=== PATIENT | male | born 1975 | race Caucasian/White ===

== ENCOUNTER 2023-11-12 17:20 | Emergency (ER) | payer OTHER, SELFPAY ==
[2023-11-12 17:22] VITALS: BP 167/101
[2023-11-12 17:39] LABS: % Basophils 0.7 % (0-2); % Eosinophils 5.6 % (0-6); % Immature Granulocytes 0.6 % (0-0.5); % Lymphocytes 37.3 % (20.5-51.1); % Monocytes 6.5 % (1.7-9.3); % Neutrophils 49.3 % (42.2-75.2); Absolute Basophils 0.1 10^3/uL (0-0.2); Absolute Eosinophils 0.5 10^3/uL (0-0.7); Absolute Immature Granulocytes 0.1 10^3/uL (0-0.05); Absolute Lymphocytes 3.2 10^3/uL (1.2-3.4); Absolute Monocytes 0.6 10^3/uL (0.1-0.6); Absolute Neutrophils 4.3 10^3/uL (1.4-6.5); Hemoglobin 15.4 g/dL (13.0-18.0); Mean Corpuscular Hgb 28.8 pg (27.0-31.0); Mean Corpuscular Volume 82.4 fL (80.0-94.0); Mean Platelet Volume 9.6 fL (7.4-10.4); Nucleated Red Blood Cells % 0 % (-); Platelet Count 192 10^3/uL (130-400); Red Blood Cell Count 5.34 10^6/uL (4.70-6.10); Red Cell Dist. Width 12.6 % (11.5-14.5); White Blood Cell Count 8.7 10^3/uL (4.8-10.8)
[2023-11-12 17:53] LABS: ALT (SGPT) 36 U/L (0-50); AST (SGOT) 27 U/L (17-59); Albumin 4.6 g/dl (3.5-5.0); Alkaline Phosphatase 85 U/L (38-126); Blood Urea Nitrogen 13 mg/dl (9-20); Calcium 9.3 mg/dl (8.4-10.2); Carbon Dioxide 30 mmol/L (22-30); Chloride 102 mmol/L (98-107); Glucose 97 mg/dl (70-99); Lipase 143 U/L (23-300); Sodium 136 mmol/L (135-145); Total Bilirubin 0.7 mg/dl (0.2-1.3); Total Protein 7.6 g/dl (6.3-8.2); eGFR > 60.00
[2023-11-12 19:00] VITALS: BMI 45.8
[2023-11-12] MEDS: NSS 500 IV (19:05)
--- NOTE | 2023-11-12 19:06 | ED.GENMED ---
History of Present Illness
General
Chief Complaint: Abdominal Pain
Source: patient
Exam Limitations: none
Time Seen by Provider: 11/12/23 18:40
Travel History
Have you had any contact with someone who has COVID-19?: No
Do you have any symptoms of coronavirus? Fever > 100 degrees, chills, cough, shortness of breath, sore throat, loss of taste or smell, muscle aches, or headache?: No
History of Present Illness
History of Present Illness:
This is a 48 year old male that comes in with c/o abd pain. States that this started about 3 days ago. State that it seemed to be the same type of pain when he had a perforation for Diverticulitis. States that his stomach started to feel bloated
and he just didn't feel good. State that he was nauseated yesterday and today he had chills. States that he has right lower abd pain. States that he also has a headache. Denies any fever, chest pain, SOB, vomiting, diarrhea, dizziness, urinary
burning.
Past History
Past History
ED Past Medical History: GERD and Other (Diverticulitis, )
ED Past Surgical History: Orthopedic (Left knee surgery) and Tonsilectomy
Social History
Tobacco: Non-smoker
Alcohol: None
Personal:
Living: with family
Employment: Employed
Family History
Family History: Other
Review of Systems
Review of Systems
All Other Systems: ROS reviewed and negative except as documented in HPI and ROS
Constitutional: Reports chills; Denies fever
EENT: Reports no symptoms
Respiratory: Reports no symptoms; Denies cough or trouble breathing
Cardiac: Reports no symptoms; Denies chest pain
ABD/GI: Reports abdominal pain and nausea; Denies vomiting or diarrhea
: Reports no symptoms; Denies dysuria, frequency or urgency
Musculoskeletal: Reports no symptoms
Skin: Reports no symptoms
Neurological: Reports headache; Denies dizzy
Psychiatric: Reports no symptoms
Phy Exam
General Physical Exam
General Presentation: well appearing and no apparent distress
General age: appears stated age
General Skin: warm and dry
General Habitus: normal
General Mental: alert
General Hydration: appears well hydrated
ENT Exam
ENT Exam: TM's normal, pharynx normal and neck supple
Eye Exam
Eye Exam: EOMI
Cardiovascular Exam
Cardiovascular Exam: regular rate/rhythm, no edema, no murmur and normal peripheral pulses
Pulmonary Exam
Pulmonary Exam: lungs clear, no respiratory distress, no rales, chest non tender, no crackles, no rhonchi, no wheezing and no cough
Gastrointestinal Exam
Gastrointestinal Exam: normal bowel sounds, soft, no organomegaly, no pulsatile mass, non distended and tender (Right lower abd pain with rebound tenderness)
Musculoskeletal Exam
Musculoskeletal Exam: full ROM and no edema
Skin Exam
Skin Exam: normal color, warm/dry, no rash and no petechia
Psychiatric Exam
Psychiatric Exam: normal mood/affect
Course
Orders/Labs/Results
Orders:
Orders
11/12/23 17:29
CMP [Comprehensive Metabolic Panel] Urgent
Complete Blood Count/With Diff Urgent
Lipase Urgent
11/12/23 18:50
CT Abd/pelvis W Iv Cont Urgent
Comment:
Reason For Exam: Right lower abd pain
11/12/23 18:51
0.9% Sodium Chloride 500 ml [Nss] 500 ml IV BOLUS
11/12/23 20:08
Urinalysis Reflex To Culture Urgent
Date Specimen was Collected: 11/12/23
Time Specimen was Collected: 19:48
Abnormal Lab Results
11/12/23
17:29
Abs Immat Gran (auto) 0.1 H 10^3/uL
(0-0.05)
Immature Gran % 0.6 H %
(0-0.5)
11/12/23 17:29
11/12/23 17:29
Labs unremarkable.
Vital Signs
Initial and Last Documented VS:
Initial Vital Signs
Temp Pulse Resp BP Pulse Ox
98.4 F 85 18 167/101 99
11/12/23 17:22 11/12/23 17:22 11/12/23 17:22 11/12/23 17:22 11/12/23 17:22
Last Documented Vital Signs
Temp Pulse Resp BP Pulse Ox
98.4 F 85 18 167/101 99
11/12/23 17:22 11/12/23 17:22 11/12/23 17:22 11/12/23 17:22 11/12/23 17:22
MDM/Problems Addressed
Differential Diagnosis Includes:
Appendicitis, Diverticulitis,
MDM/Problems Addressed:
This is a 48 year old male that comes in with c/o right sided abd pain. States that he started 3 days ago with this right sided abd pain. States that today he has chills and nausea.
Will get labs and CT scan. Patient refused pain medication at this time.
Back into see patient. Explained that he dose have Diverticulitis. Will start patient on Levaquin and Flagyl. Patient to return with fever, increased or changing pain. Patient to follow up with the PCP or Dr. Reynolds.
Chronic conditions affecting care:
History of Diverticulitis
Acute Exacerbation and/or Progression of Chronic Illness:
Diverticulitis
*Radiology
Radiology exam reviewed: radiology read reviewed (CT-Acute diverticulitis in the sigmoid colon. Moderate diverticulosis throughout the sigmoid colon. Severe diffuse hepatic steatosis. Mild hepatosplenomegaly. Moderate discogenic degenerative disease
in the lumbar spine)
*Pulse Oximetry
Patient hypoxic: no
*EKG
Interpreted by ED Provider?: NA
Rate: EKG- N/A
*Family And Divorce Legal Assistant Interpretation
Rate: Family And Divorce Legal Assistant- N/A
*Critical Care Note
Total Time (30-74mins, 75-104mins- exclusive of procedures): Not Applicable
ED Attending Note
-
Portions of this chart may have been created with voice recognition software.� Occasional wrong word or��sound alike� substitutions may have occurred due to the inherent limitations of voice recognition software.
Discharge Plan
Departure
Patient Disposition: Home (Routine Discharge)
Date of Disposition: 11/12/23
Time of Disposition: 20:59
Patient with high blood pressure during this ER visit?: Yes
Condition: Good
Covid-19: Not Applicable
Discharge Problem:
Diverticulitis
Instructions: Diverticulitis (DC), BLOOD PRESSURE
Prescriptions:
New
levofloxacin 500 mg tablet
500 mg PO DAILY Qty: 9 0RF
metronidazole 500 mg tablet
500 mg PO TID Qty: 29 0RF
ondansetron 4 mg tablet,disintegrating
4 mg PO Q8H PRN (Reason: nausea and vomiting) Qty: 5 0RF
No Action
Ag1 Greens
1 dose PO DAILY
aspirin 81 mg Capsule
81 mg
Referrals:
Jose Rainey DO [Family Provider] - Call in 1-3 days for appt
Activity Restrictions/Additional Instructions:
As discussed, our blood work is normal. Your CT shows that you have diverticulitis. You have been given your first dose of antibiotic here and prescriptions have been sent to your Pharmacy. Please follow up with the family doctor of your GI
specialist for further evaluation. IF YOU HAVE INCREASED OR CHANGING ABD PAIN, FEVER, OR YOU HAVE ANY OTHER CONCERNS PLEASE RETURN TO THE EMERGENCY ROOM.
Interventions
Interventions:
*Risk Screen - Suicide Last Done: 11/12/23 19:07
*General Assessment Last Done: 11/12/23 19:07
*Neglect/Abuse Screening Last Done: 11/12/23 19:07
*ED COVID-19 Vaccine History Last Done: 11/12/23 19:07
RI-Wmyvxt-Grjhsrkjnd Assessment Last Done: 11/12/23 19:00
Discharge Date and Time
Print Language: MACEDONIAN
[2023-11-12 20:13] LABS: Urine Albumin Negative (Neg - Trace); Urine Bilirubin Negative (Negative); Urine Character Clear (Clear); Urine Color Yellow; Urine Glucose Negative (Negative); Urine Ketone Negative (Negative); Urine Leukocyte Negative (Negative); Urine Nitrite Negative (Negative); Urine Occult Blood Negative (Negative); Urine Specific Gravity 1.015 (<1.030); Urine Urobilinogen Negative (Neg - 1+)
[2023-11-12] MEDS: ZOFRAN 4 MG IV (21:14)
[2023-11-12] MEDS: FLAGYL 500 MG PO (21:14)
[2023-11-12] MEDS: LEVAQUIN 500 MG PO (21:14)
[2023-11-12 21:15] VITALS: BP 151/107
== END 2023-11-12 21:42 | disposition home or self-care (01) ==
LOC: EMR 17:20
PROVIDERS: Clinical Nurse Specialist Family Health; EMERGENCY PHYSICIAN Emergency Medicine; FAMILY PHYSICIAN Family Medicine
DX: K57.32 Diverticulitis of large intestine without perforation or abscess without bleeding (principal); K21.9 Gastro-esophageal reflux disease without esophagitis
CPT/HCPCS: 99284; 96374; 96361; 74177; 80053; 81003; 83690; 85025; Q9967

== ENCOUNTER 2023-11-20 16:26 | Emergency (ER) | payer OTHER, SELFPAY ==
[2023-11-20 16:28] VITALS: BP 154/105
[2023-11-20 18:01] VITALS: BMI 45.1
--- NOTE | 2023-11-20 18:16 | ED.GENMED ---
History of Present Illness
General
Chief Complaint: Abdominal Pain
Source: patient
Exam Limitations: none
Time Seen by Provider: 11/20/23 17:47
Nursing documentation reviewed up to this point in time: agreed with
Travel History
Have you had any contact with someone who has COVID-19?: No
Do you have any symptoms of coronavirus? Fever > 100 degrees, chills, cough, shortness of breath, sore throat, loss of taste or smell, muscle aches, or headache?: No
History of Present Illness
History of Present Illness:
Patient is a 48-year-old male who presents to the ER for evaluation. Patient was treated for diverticulitis which was diagnosed here by CAT scan 8 days ago. Patient has been taking Levaquin and Flagyl. Patient reports now he feels more pain in
his upper abdominal region and feels very bloated. He Is not made worse or better with eating. He does report he has had reflux in the past but this feels worse. He denies any fever or chills
Past History
Past History
ED Past Medical History: GERD and Other (Diverticulitis, )
ED Past Surgical History: Orthopedic (Left knee surgery) and Tonsilectomy
Social History
Tobacco: Non-smoker
Alcohol: None
Personal:
Living: with family
Employment: Employed
Family History
Family History: Other
Review of Systems
Review of Systems
Allergies reviewed?: Yes
All Other Systems: ROS reviewed and negative except as documented in HPI and ROS
Constitutional: Reports no symptoms; Denies fever, fatigue or chills
Respiratory: Reports no symptoms
Cardiac: Reports no symptoms
ABD/GI: Reports abdominal pain; Denies nausea or vomiting
: Reports no symptoms
Musculoskeletal: Reports no symptoms
Skin: Reports no symptoms
Neurological: Reports no symptoms
Psychiatric: Reports no symptoms
Phy Exam
General Physical Exam
General Presentation: no apparent distress
General age: appears stated age
General Skin: warm and dry
General Habitus: normal
General Mental: alert
General Hydration: appears well hydrated
Cardiovascular Exam
Cardiovascular Exam: regular rate/rhythm, no murmur and normal peripheral pulses
Pulmonary Exam
Pulmonary Exam: lungs clear and no respiratory distress
Gastrointestinal Exam
Gastrointestinal Exam: soft and other (Tender throughout the upper abdominal region)
Neurological Exam
Neurological Exam: alert and oriented x3
Musculoskeletal Exam
Musculoskeletal Exam: full ROM
Course
Orders/Labs/Results
Orders:
Orders
11/20/23 16:29
Electrocardiogram (*1) Urgent
Reason for Study: Abdominal Pain
EKG- Treatment ONCE
11/20/23 18:12
CMP [Comprehensive Metabolic Panel] Urgent
Complete Blood Count/With Diff Urgent
11/20/23 18:18
CT Abd/Pel (IV only)-DH only Urgent
Comment:
Reason For Exam: Worsening abdominal pain with known diverticulitis
11/20/23 20:53
Famotidine [Pepcid] 20 mg IV NOW STA
Mag Hydrox/Al Hydrox/Simeth [Maalox] 30 ml Phenobarb/Hyoscy/Atropine/Scop [] 10 ml PO NOW
11/20/23 20:58
Mag Hydrox/Al Hydrox/Simeth [Maalox] 30 ml .ROUTE .STK-MED ONE
Phenobarb/Hyoscy/Atropine/Scop [] 10 ml .ROUTE .STK-MED ONE
Abnormal Lab Results
11/20/23
18:12
Lymphocytes % 18.5 L %
(20.5-51.1)
Carbon Dioxide 32 H mmol/L
(22-30)
Glucose 104 H mg/dl
(70-99)
11/20/23 18:12
11/20/23 18:12
Vital Signs
Initial and Last Documented VS:
Initial Vital Signs
Temp Pulse Resp BP Pulse Ox
97.8 F 92 18 154/105 99
11/20/23 16:28 11/20/23 16:28 11/20/23 16:28 11/20/23 16:28 11/20/23 16:28
Last Documented Vital Signs
Temp Pulse Resp BP Pulse Ox
97.8 F 92 18 150/95 99
11/20/23 16:28 11/20/23 16:28 11/20/23 16:28 11/20/23 21:00 11/20/23 16:28
MDM/Problems Addressed
MDM/Problems Addressed:
Patient is a 48-year-old male that was treated for diverticulitis 8 days ago here in the ER but now complains of burning pain in the upper abdominal area. He has history reflux in the past and took a strong oucd-vfr-bgbpuhy antiacid previously but
stopped taking it and forgets the name. He presents awake alert no acute distress he describes this as a burning type pain in the upper abdominal area mild tender. He denies any fever or chills. He is on antibiotics. CAT scan was done which does
show improving sigmoid diverticulitis with only minimal residual inflammatory fat stranding. There is normal gallbladder bile ducts pancreas and bilateral adrenal glands along with normal kidneys and no hydro. Likely gastritis. Patient was given
GI cocktail here along with Pepcid feeling much better. Will d/c w/ Protonix. Pt denies black dark stool.
Patient's white count is normal normal chemistries.
Patient has appointment with Dr. Reynolds for follow-up December 11 will also refer to GI .
Chronic conditions affecting care:
diverticulitis
*Radiology
Radiology exam reviewed: radiology read reviewed
*Pulse Oximetry
Patient hypoxic: no
*Critical Care Note
Total Time (30-74mins, 75-104mins- exclusive of procedures): Not Applicable
Data Reviewed
Review of Other/Old Records Reveals: Radiology Studies and Other (previous ED visit )
ED Attending Note
-
Portions of this chart may have been created with voice recognition software.� Occasional wrong word or��sound alike� substitutions may have occurred due to the inherent limitations of voice recognition software.
Discharge Plan
Departure
Patient Disposition: Home (Routine Discharge)
Date of Disposition: 11/20/23
Time of Disposition: 22:35
Patient with high blood pressure during this ER visit?: Yes
Condition: Fair
Covid-19: Not Applicable
Discharge Problem:
Abdominal pain, Gastritis
Instructions: Acid Reflux and GERD in Adults (DC), Gastritis (DC), Abdominal Pain
Prescriptions:
New
pantoprazole [Protonix] 40 mg tablet,delayed release (DR/EC)
40 mg PO DAILY Qty: 14 0RF
No Action
Ag1 Greens
1 dose PO DAILY
aspirin 81 mg Capsule
81 mg
levofloxacin 500 mg tablet
500 mg PO DAILY Qty: 9 0RF
metronidazole 500 mg tablet
500 mg PO TID Qty: 29 0RF
ondansetron 4 mg tablet,disintegrating
4 mg PO Q8H PRN (Reason: nausea and vomiting) Qty: 5 0RF
Referrals:
Jose Rainey DO [Family Provider] -
Ludy Estrada MD [Active] -
Activity Restrictions/Additional Instructions:
Continue antibiotics until you are completed for your diverticulitis.
A prescription for Protonix was sent to your pharmacy take as directed. Avoid spicy acidic foods avoid caffeine and chocolates. Follow-up with your family doctor in the next several days for reevaluation. Also follow-up with GI. Call
Follow-up with Dr. Reynolds as scheduled and return if any worsening of symptoms
Interventions
Interventions:
*Risk Screen - Suicide Last Done: 11/20/23 16:28
*General Assessment Last Done: 11/20/23 16:28
*Neglect/Abuse Screening Last Done: 11/20/23 16:28
ED- Fall Risk Assessment Last Done: 11/20/23 18:04
*ED COVID-19 Vaccine History Last Done: 11/20/23 16:28
MK-Hinofu-Qpsqvfovzi Assessment Last Done: 11/20/23 18:01
Discharge Date and Time
Print Language: SYRIAC
[2023-11-20 18:26] LABS: % Basophils 0.4 % (0-2); % Eosinophils 4.7 % (0-6); % Immature Granulocytes 0.4 % (0-0.5); % Lymphocytes 18.5 % (20.5-51.1); % Monocytes 4.5 % (1.7-9.3); % Neutrophils 71.5 % (42.2-75.2); Absolute Eosinophils 0.4 10^3/uL (0-0.7); Absolute Lymphocytes 1.5 10^3/uL (1.2-3.4); Absolute Monocytes 0.4 10^3/uL (0.1-0.6); Absolute Neutrophils 5.6 10^3/uL (1.4-6.5); Hematocrit 46.8 % (39.0-52.0); Hemoglobin 16.2 g/dL (13.0-18.0); Mean Corp Hgb Conc. 34.6 g/dL (33.0-37.0); Mean Corpuscular Hgb 28.4 pg (27.0-31.0); Mean Platelet Volume 9.3 fL (7.4-10.4); Nucleated Red Blood Cells % 0 % (-); Platelet Count 177 10^3/uL (130-400); Red Blood Cell Count 5.71 10^6/uL (4.70-6.10); Red Cell Dist. Width 12.8 % (11.5-14.5); White Blood Cell Count 7.8 10^3/uL (4.8-10.8)
[2023-11-20 18:38] LABS: ALT (SGPT) 38 U/L (0-50); AST (SGOT) 32 U/L (17-59); Albumin 4.5 g/dl (3.5-5.0); Alkaline Phosphatase 61 U/L (38-126); Blood Urea Nitrogen 20 mg/dl (9-20); Calcium 9.5 mg/dl (8.4-10.2); Carbon Dioxide 32 mmol/L (22-30); Chloride 99 mmol/L (98-107); Estimated Creatinine Clearance > 125 ml/min; Glucose 104 mg/dl (70-99); Potassium 4.8 mmol/L (3.5-5.1); Sodium 136 mmol/L (135-145); Total Protein 7.4 g/dl (6.3-8.2); eGFR > 60.00
[2023-11-20 19:16] VITALS: BP 141/107
[2023-11-20 21:00] VITALS: BP 150/95
[2023-11-20] MEDS: PEPCID 20 MG IV (21:00)
[2023-11-20] MEDS: MAALOX 40 PO (21:01)
[2023-11-20 22:00] VITALS: BP 150/106
[2023-11-20] MEDS: PROTONIX 40 MG PO (22:41)
== END 2023-11-20 22:57 | disposition home or self-care (01) ==
LOC: EMR 16:26
PROVIDERS: Nurse Practitioner; EMERGENCY PHYSICIAN Emergency Medicine; FAMILY PHYSICIAN Family Medicine
DX: R10.9 Unspecified abdominal pain (principal); K29.70 Gastritis, unspecified, without bleeding; K21.9 Gastro-esophageal reflux disease without esophagitis
CPT/HCPCS: 99284; 96374; 74177; 80053; 85025; 93005; Q9967

== ENCOUNTER → 2024-01-09 06:35 | Day surgery (SDC) | payer OTHER, SELFPAY | LOC: GI 06:35 | PROVIDERS: ATTENDING PHYSICIAN Internal Medicine | DX: R12 Heartburn (principal); K31.89 Other diseases of stomach and duodenum; K31.7 Polyp of stomach and duodenum | CPT/HCPCS: 43239; 88305; 88342 ==

== ENCOUNTER 2024-04-14 19:57 | Emergency (ER) | payer OTHER, SELFPAY ==
[2024-04-14 19:58] VITALS: BP 160/104
[2024-04-14 20:15] LABS: % Basophils 0.6 % (0-2); % Eosinophils 3.7 % (0-6); % Immature Granulocytes 0.3 % (0-0.5); % Lymphocytes 39.3 % (20.5-51.1); % Monocytes 5.9 % (1.7-9.3); % Neutrophils 50.2 % (42.2-75.2); Absolute Eosinophils 0.3 10^3/uL (0-0.7); Absolute Lymphocytes 2.9 10^3/uL (1.2-3.4); Absolute Monocytes 0.4 10^3/uL (0.1-0.6); Absolute Neutrophils 3.7 10^3/uL (1.4-6.5); Hematocrit 45.4 % (39.0-52.0); Hemoglobin 15.6 g/dL (13.0-18.0); Mean Corp Hgb Conc. 34.4 g/dL (33.0-37.0); Mean Corpuscular Hgb 28.9 pg (27.0-31.0); Mean Corpuscular Volume 84.2 fL (80.0-94.0); Mean Platelet Volume 9.8 fL (7.4-10.4); Nucleated Red Blood Cells % 0 % (-); Platelet Count 158 10^3/uL (130-400); Red Blood Cell Count 5.39 10^6/uL (4.70-6.10); Red Cell Dist. Width 12.4 % (11.5-14.5); White Blood Cell Count 7.3 10^3/uL (4.8-10.8)
[2024-04-14 20:28] LABS: ALT (SGPT) 29 U/L (0-50); AST (SGOT) 27 U/L (17-59); Albumin 4.6 g/dl (3.5-5.0); Alkaline Phosphatase 83 U/L (38-126); Blood Urea Nitrogen 15 mg/dl (9-20); Calcium 9.4 mg/dl (8.4-10.2); Carbon Dioxide 29 mmol/L (22-30); Chloride 101 mmol/L (98-107); Glucose 117 mg/dl (70-99); Sodium 142 mmol/L (135-145); Total Bilirubin 0.7 mg/dl (0.2-1.3); Total Protein 7.4 g/dl (6.3-8.2); eGFR > 60.00
[2024-04-14 20:57] LABS: Lipase 185 U/L (23-300)
--- NOTE | 2024-04-14 23:12 | ED.GENMED ---
History of Present Illness
General
Chief Complaint: Abdominal Symptoms
Source: patient
Exam Limitations: none
Time Seen by Provider: 04/14/24 20:41
History of Present Illness
History of Present Illness:
This is a 49 year old male that comes in with c/o left sided abd pain. States that for the past couple of days he has had left sided abd discomfort. States that this feels like it did before when he had diverticulitis. States that this has happened
2 times before and he did have a perforation. States that at first he thought it could be his sciatic pain but he realized it was his abd pain. States that he has been constipated. States that he also had nausea. Denies any fever, chills, chest
pain, SOB, vomiting, diarrhea, dizziness, urinary burning.
Past History
Past History
ED Past Medical History: GERD and Other (Diverticulitis, )
ED Past Surgical History: Orthopedic (Left knee surgery) and Tonsilectomy
Social History
Tobacco: Non-smoker
Alcohol: Occasional
Personal:
Living: with family
Employment: Employed
Family History
Family History: Other
Review of Systems
Review of Systems
All Other Systems: ROS reviewed and negative except as documented in HPI and ROS
Constitutional: Reports no symptoms; Denies fever or chills
EENT: Reports no symptoms
Respiratory: Reports no symptoms; Denies cough or trouble breathing
Cardiac: Reports no symptoms; Denies chest pain
ABD/GI: Reports abdominal pain, nausea and constipated; Denies vomiting or diarrhea
: Reports no symptoms; Denies dysuria, frequency or urgency
Musculoskeletal: Reports no symptoms
Skin: Reports no symptoms
Neurological: Reports headache; Denies dizzy
Psychiatric: Reports no symptoms
Phy Exam
General Physical Exam
General Presentation: well appearing and no apparent distress
General age: appears stated age
General Skin: warm and dry
General Habitus: normal
General Mental: alert
General Hydration: appears well hydrated
ENT Exam
ENT Exam: TM's normal, pharynx normal and neck supple
Eye Exam
Eye Exam: EOMI
Cardiovascular Exam
Cardiovascular Exam: regular rate/rhythm, no edema, no murmur and normal peripheral pulses
Pulmonary Exam
Pulmonary Exam: lungs clear, no respiratory distress, no rales, chest non tender, no crackles, no rhonchi, no wheezing and no cough
Gastrointestinal Exam
Gastrointestinal Exam: normal bowel sounds, soft, no organomegaly, no pulsatile mass, non distended and tender (Slight left sided tenderness with palpation)
Musculoskeletal Exam
Musculoskeletal Exam: full ROM and no edema
Skin Exam
Skin Exam: normal color, warm/dry, no rash and no petechia
Psychiatric Exam
Psychiatric Exam: normal mood/affect
Course
Orders/Labs/Results
Orders:
Orders
04/14/24 20:04
Complete Blood Count/With Diff Urgent
Comprehensive Metabolic Panel Urgent
Lactic Acid Urgent
Lipase Urgent
04/14/24 21:12
CT Abd/pelvis W Iv Cont Urgent
Comment: history of diverticulitis with perforation
Reason For Exam: left sided abd pain
Abnormal Lab Results
04/14/24
20:04
Glucose 117 H mg/dl
(70-99)
04/14/24 20:04
04/14/24 20:04
Glucose nonfasting. Lactic acid normal at 1.0, Lipase normal at 185
Vital Signs
Initial and Last Documented VS:
Initial Vital Signs
Temp Pulse Resp BP Pulse Ox
98.9 F 85 20 160/104 99
04/14/24 19:58 04/14/24 19:58 04/14/24 19:58 04/14/24 19:58 04/14/24 19:58
Last Documented Vital Signs
Temp Pulse Resp BP Pulse Ox
98.9 F 85 20 160/104 99
04/14/24 19:58 04/14/24 19:58 04/14/24 19:58 04/14/24 19:58 04/14/24 19:58
MDM/Problems Addressed
Differential Diagnosis Includes:
Diverticulitis, Constipation
MDM/Problems Addressed:
This is a 49 year old male that comes in with c/o abd pain. States that this feels like his Diverticulitis.
Will get labs and CT scan. ]
Back into see patient. Explained that his blood work is normal. CT shows diverticuli but no diverticulitis. Since patient feels that this feels the same. Will give patient prescription for antibiotics and if he starts to feel worse he can start the
antibiotics. Patient to return with fever, or any other concerns. Follow up with the family doctor.
Chronic conditions affecting care:
Diverticulitis,
Acute Exacerbation and/or Progression of Chronic Illness:
NA
*Radiology
Radiology exam reviewed: radiology read reviewed (CT-Diverticuli are present in the colon with no CT evidence of diverticulitis. Hepatomegaly with diffuse fatty infiltration of the liver. Multilevel lumbar degenerative disc disease. )
*Pulse Oximetry
Patient hypoxic: no
*EKG
Interpreted by ED Provider?: NA
Rate: EKG- N/A
*Booking Clerk Interpretation
Rate: Booking Clerk- N/A
*Critical Care Note
Total Time (30-74mins, 75-104mins- exclusive of procedures): Not Applicable
ED Attending Note
-
Portions of this chart may have been created with voice recognition software.� Occasional wrong word or��sound alike� substitutions may have occurred due to the inherent limitations of voice recognition software.
Discharge Plan
Departure
Patient Disposition: Home (Routine Discharge)
Date of Disposition: 04/14/24
Time of Disposition: 23:24
Patient with high blood pressure during this ER visit?: Yes
Condition: Good
Covid-19: Not Applicable
Discharge Problem:
Abdominal pain
Instructions: Abdominal Pain, BLOOD PRESSURE
Prescriptions:
New
levofloxacin 500 mg tablet
500 mg PO DAILY 10 Days Qty: 10 0RF
metronidazole 500 mg tablet
500 mg PO TID Qty: 30 0RF
No Action
Ag1 Greens
1 dose PO DAILY
aspirin 81 mg Capsule
81 mg
levofloxacin 500 mg tablet
500 mg PO DAILY Qty: 9 0RF
metronidazole 500 mg tablet
500 mg PO TID Qty: 29 0RF
ondansetron 4 mg tablet,disintegrating
4 mg PO Q8H PRN (Reason: nausea and vomiting) Qty: 5 0RF
pantoprazole [Protonix] 40 mg tablet,delayed release (DR/EC)
40 mg PO DAILY Qty: 14 0RF
Referrals:
Jose Rainey DO [Family Provider] - Call in 1-3 days for appt
Activity Restrictions/Additional Instructions:
As discussed, your blood work is normal. Your CT shows Diverticuli but no diverticulitis at this time. If your abd pain continues to get worse, you have had 2 antibiotics sent to your Pharmacy that will treat diverticulitis. You may start them as
directed. Please increase your water intake to 8-8oxz glasses daily. Follow up with the family doctor for recheck. IF YOU HAVE FEVER, PAIN THAT IS NOT CONTROLLED OR YOU HAVE ANY OTHER CONCERNS PLEASE RETURN TO THE EMERGENCY ROOM.
Interventions
Interventions:
*General Assessment Last Done: 04/14/24 19:58
Discharge Date and Time
Print Language: URDU
[2024-04-14 23:27] VITALS: BP 147/96
== END 2024-04-14 23:33 | disposition home or self-care (01) ==
LOC: EMR 19:57
PROVIDERS: Emergency Medicine; EMERGENCY PHYSICIAN Emergency Medicine; FAMILY PHYSICIAN Family Medicine
DX: R10.9 Unspecified abdominal pain (principal); K21.9 Gastro-esophageal reflux disease without esophagitis
CPT/HCPCS: 99284; 74177; 80053; 83605; 83690; 85025; Q9967

== ENCOUNTER 2024-05-18 16:40 | Emergency (ER) | payer OTHER, SELFPAY ==
[2024-05-18 16:46] VITALS: BP 163/119
--- NOTE | 2024-05-18 16:47 | ED.GENMED ---
ED Provider Triage
<Jenni Leavitt PA-C - Last Filed: 05/18/24 16:50>
-
Patient seen by provider in Triage?: Seen in Triage
Attestation: A medical screening examination has been initiated by a qualified medical provider. Based on the assessment performed at this time, it has been determined that an emergent medical condition may exist and the patient has been informed
that further medical evaluation and possible additional diagnostic testing may be needed.
HPI: 49yoM here with SOB and CP. Started with dyspnea while sitting in a meeting at 3:30pm. Associated with lightheadedness and chest pressure.
GENERAL: Alert , in no apparent distress
EYE: No visual abnormalities.
NECK: Trachea midline
ENT: No visible abnormalities.
LUNGS: No acute respiratory distress
NEUROLOGICAL: Alert and oriented
SKIN: Skin intact. No visible changes.
MUSCULOSKELETAL: Moving extremities normally
PSYCH: Normal and appropriate interaction.
This is a medical evaluation conducted in person to initiate diagnostic evaluation and provide initial therapeutics. Please see further documentation by the treating clinician.
Cardiac labs, D-dimer, EKG, and CXR ordered.
History of Present Illness
<Jenni Leavitt PA-C - Last Filed: 05/18/24 16:50>
General
Chief Complaint: Chest Pain
Time Seen by Provider: 05/18/24 20:09
<Dg Scott DO - Last Filed: 05/18/24 22:42>
General
Source: patient
Exam Limitations: none
History of Present Illness
History of Present Illness:
See MDM
Past History
<Jenni Leavitt PA-C - Last Filed: 05/18/24 16:50>
Past History
ED Past Medical History: GERD and Other (Diverticulitis, )
ED Past Surgical History: Orthopedic (Left knee surgery) and Tonsilectomy
Social History
Tobacco: Non-smoker
Alcohol: Occasional
Personal:
Living: with family
Employment: Employed
Family History
Family History: Other
Phy Exam
<Dg Scott, - Last Filed: 05/18/24 22:42>
Physical Exam
Physical Exam:
See MDM
Scores
<Dg Scott, DO - Last Filed: 05/18/24 22:42>
Heart Score for Chest Pain Patients
STEMI patient?: No
History: Slightly or Non-Suspicious
ECG: Normal
Age: >45 - <65 years
Risk Factors: 1 or 2 Risk Factors
Troponin: </= Normal Limit
Heart Score for Chest Pain Patients: 2
Heart Score Risk: 2.5% MACE over next 6 weeks
Course
<Jenni Leavitt PA-C - Last Filed: 05/18/24 16:50>
Orders/Labs/Results
Orders:
Orders
05/18/24 16:41
Electrocardiogram (*1) Urgent
Reason for Study: Chest Pain
EKG- Treatment ONCE
05/18/24 16:49
CR Chest - 2 Views Urgent
Comment:
Reason For Exam: CP, SOB
05/18/24 16:59
Complete Blood Count/With Diff Urgent
Comprehensive Metabolic Panel Urgent
D-Dimer Urgent
Troponin I Urgent
Abnormal Lab Results
05/18/24
16:59
Glucose 106 H mg/dl
(70-99)
05/18/24 16:59
05/18/24 16:59
Vital Signs
Initial and Last Documented VS:
Initial Vital Signs
Temp Pulse Resp BP Pulse Ox
97.9 F 81 18 163/119 96
05/18/24 16:46 05/18/24 16:46 05/18/24 16:46 05/18/24 16:46 05/18/24 16:46
Last Documented Vital Signs
Temp Pulse Resp BP Pulse Ox
98.0 F 74 18 148/102 96
05/18/24 19:56 05/18/24 20:40 05/18/24 20:40 05/18/24 20:40 05/18/24 20:40
<Dg Scott, DO - Last Filed: 05/18/24 22:42>
Orders/Labs/Results
Orders:
Orders
05/18/24 16:41
Electrocardiogram (*1) Urgent
Reason for Study: Chest Pain
EKG- Treatment ONCE
05/18/24 16:49
CR Chest - 2 Views Urgent
Comment:
Reason For Exam: CP, SOB
05/18/24 16:59
Complete Blood Count/With Diff Urgent
Comprehensive Metabolic Panel Urgent
D-Dimer Urgent
Troponin I Urgent
Abnormal Lab Results
05/18/24
16:59
Glucose 106 H mg/dl
(70-99)
05/18/24 16:59
05/18/24 16:59
Vital Signs
Initial and Last Documented VS:
Initial Vital Signs
Temp Pulse Resp BP Pulse Ox
97.9 F 81 18 163/119 96
05/18/24 16:46 05/18/24 16:46 05/18/24 16:46 05/18/24 16:46 05/18/24 16:46
Last Documented Vital Signs
Temp Pulse Resp BP Pulse Ox
98.0 F 74 18 148/102 96
05/18/24 19:56 05/18/24 20:40 05/18/24 20:40 05/18/24 20:40 05/18/24 20:40
<Dg Scott, DO - Last Filed: 05/18/24 22:42>
MDM/Problems Addressed
Differential Diagnosis Includes:
HPI and MDM Narrative:
49-year-old male presenting for evaluation of resolving chest pain. Patient was at a meeting around 2:30 PM and he got sudden onset of shortness of breath and central chest tightness. Patient states this has happened before and it appeared to self
resolved. He denies prior past medical history. He has followed up with cardiology for intermittent chest pains in the past and patient states that his workup was negative
Long discussion with patient. He believes this could be anxiety related. Workup was done prior to my evaluation EKG is nonischemic. Troponin is normal. Chest x-ray is clear. Patient states he feels comfortable going home
Physical exam
General: Well appearing and non-toxic
HEENT: protecting airway
Neck: appears supple
CV: No evidence of cyanosis. Regular rate and rhythm
Resp: No accessory muscle use. Lungs clear
Abd: Non-distended
Extremities: No deformities. No leg edema or tenderness
Neuro: alert
Psych: Normal affect
Skin: Intact
Problems Addressed including Acute and Chronic Conditions affecting care:
1. Sudden chest pain shortness of breath
Acuity: acute
Prognosis: stable
Details: Symptoms have self resolved. He believes it could be anxiety related. Work negative. We discussed the possibility of an abnormal heart rhythm as the source of his symptoms but discussed outpatient workup
Differential Diagnosis (but not limited to): Gastritis, anxiety, ACS
Testing considered: Second troponin but symptoms are inconsistent with ACS
Drug therapy (if applicable): OTC meds, please see d/c instruction regarding Rx drugs
Amount and/or Complexity of Data Reviewed
Clinical info obtained from: Patient
External data reviewed: N/A
Labs I independently reviewed (but not limited to): Troponin normal, D-dimer negative
Radiology: X-ray independently reviewed: Chest x-ray clear
Pulse Ox: not hypoxic
EKG independently reviewed: Sinus rhythm, normal axis, no STEMI
[employer] Architect: N/A
Critical Care: N/A
Risk of Complication:
Social Determinants of health: Good social support
Discussed with other providers: N/A
Escalation of Care includes Admit/Obs: After being observed in the Emergency Department, pt stable for discharge.
Occasional wrong word or 'sound a like' substitutions may have occurred due to the inherent limitations of voice recognition software. Read the chart carefully and recognize, using context, where substitutions have occurred.
<Dg Scott DO - Last Filed: 05/18/24 22:42>
*Critical Care Note
Total Time (30-74mins, 75-104mins- exclusive of procedures): Not Applicable
ED Attending Note
<Jenni Leavitt PA-C - Last Filed: 05/18/24 16:50>
-
Portions of this chart may have been created with voice recognition software.� Occasional wrong word or��sound alike� substitutions may have occurred due to the inherent limitations of voice recognition software.
Discharge Plan
Departure
Patient Disposition: Home (Routine Discharge)
Date of Disposition: 05/18/24
Time of Disposition: 20:29
Patient with high blood pressure during this ER visit?: Yes
Discharge Problem:
Chest pain
Instructions: Chest Pain That Is Not Caused by the Heart (DC), BLOOD PRESSURE
Prescriptions:
New
hydroxyzine HCl 25 mg tablet
25 mg PO BID PRN (Reason: anxiety ) Qty: 20 0RF
No Action
Ag1 Greens
1 dose PO DAILY
aspirin 81 mg Capsule
81 mg
levofloxacin 500 mg tablet
500 mg PO DAILY Qty: 9 0RF
metronidazole 500 mg tablet
500 mg PO TID Qty: 29 0RF
ondansetron 4 mg tablet,disintegrating
4 mg PO Q8H PRN (Reason: nausea and vomiting) Qty: 5 0RF
pantoprazole [Protonix] 40 mg tablet,delayed release (DR/EC)
40 mg PO DAILY Qty: 14 0RF
levofloxacin 500 mg tablet
500 mg PO DAILY 10 Days Qty: 10 0RF
metronidazole 500 mg tablet
500 mg PO TID Qty: 30 0RF
Activity Restrictions/Additional Instructions:
Please return for any worsening symptoms.
You may return at any time if you have further concerns.
Please follow up with your doctor at the first available appointment, preferably this week.
Please reach out to your check grader and discuss that your symptoms have returned.
Thank you for choosing [facility].
Interventions
Interventions:
*General Assessment Last Done: 05/18/24 20:39
*Neglect/Abuse Screening Last Done: 05/18/24 20:39
ED- Fall Risk Assessment Last Done: 05/18/24 20:42
*ED COVID-19 Vaccine History Last Done: 05/18/24 20:39
*Nursing Disposition Last Done: 05/18/24 20:42
ED- Cardiac Assessment Last Done: 05/18/24 20:30
Discharge Date and Time
Discharge Date/Time: 05/18/24 20:42
Print Language: MONGOLIAN
[2024-05-18 17:08] LABS: % Basophils 0.7 % (0-2); % Eosinophils 3.5 % (0-6); % Immature Granulocytes 0.5 % (0-0.5); % Lymphocytes 33.3 % (20.5-51.1); % Monocytes 6.1 % (1.7-9.3); % Neutrophils 55.9 % (42.2-75.2); Absolute Basophils 0.1 10^3/uL (0-0.2); Absolute Eosinophils 0.3 10^3/uL (0-0.7); Absolute Lymphocytes 2.5 10^3/uL (1.2-3.4); Absolute Monocytes 0.5 10^3/uL (0.1-0.6); Absolute Neutrophils 4.1 10^3/uL (1.4-6.5); Hematocrit 44.4 % (39.0-52.0); Hemoglobin 15.6 g/dL (13.0-18.0); Mean Corp Hgb Conc. 35.1 g/dL (33.0-37.0); Mean Corpuscular Hgb 28.3 pg (27.0-31.0); Mean Corpuscular Volume 80.4 fL (80.0-94.0); Nucleated Red Blood Cells % 0 % (-); Platelet Count 182 10^3/uL (130-400); Red Blood Cell Count 5.52 10^6/uL (4.70-6.10); Red Cell Dist. Width 12.6 % (11.5-14.5); White Blood Cell Count 7.4 10^3/uL (4.8-10.8)
[2024-05-18 17:19] LABS: D-Dimer 0.29 ug/mlFEU (0.00-0.50)
[2024-05-18 17:28] LABS: ALT (SGPT) 36 U/L (0-50); AST (SGOT) 30 U/L (17-59); Albumin 4.8 g/dl (3.5-5.0); Alkaline Phosphatase 70 U/L (38-126); Blood Urea Nitrogen 16 mg/dl (9-20); Calcium 9.5 mg/dl (8.4-10.2); Carbon Dioxide 27 mmol/L (22-30); Chloride 101 mmol/L (98-107); Glucose 106 mg/dl (70-99); Potassium 4.2 mmol/L (3.5-5.1); Sodium 142 mmol/L (135-145); Total Bilirubin 0.7 mg/dl (0.2-1.3); Total Protein 7.7 g/dl (6.3-8.2); eGFR > 60.00
[2024-05-18 17:46] LABS: Troponin I < 0.012 ng/ml
[2024-05-18 19:56] VITALS: BP 150/93
[2024-05-18 20:40] VITALS: BP 148/102
== END 2024-05-18 20:42 | disposition home or self-care (01) ==
LOC: EMR 16:40
PROVIDERS: Physician Assistant; EMERGENCY PHYSICIAN Student in an Organized Health Care Education/Training Program; FAMILY PHYSICIAN Family Medicine
DX: R07.89 Other chest pain (principal); K21.9 Gastro-esophageal reflux disease without esophagitis
CPT/HCPCS: 99285; 71046; 80053; 84484; 85025; 85379; 93005

== ENCOUNTER 2024-05-21 23:09 | Emergency (ER) | payer OTHER, SELFPAY ==
[2024-05-21 23:29] VITALS: BP 150/101
--- NOTE | 2024-05-22 00:07 | ED.GENMED ---
History of Present Illness
<Stephanie Villalta MD, Resident - Last Filed: 05/22/24 02:33>
General
Chief Complaint: Blood Pressure Problem
Source: patient
Exam Limitations: none
Time Seen by Provider: 05/22/24 00:07
Nursing documentation reviewed up to this point in time: agreed with
Travel History
Have you traveled to any high risk areas for coronavirus over the past 14 days?: No
Have you had any contact with someone who has COVID-19?: No
Do you have any symptoms of coronavirus? Fever > 100 degrees, chills, cough, shortness of breath, sore throat, loss of taste or smell, muscle aches, or headache?: No
History of Present Illness
History of Present Illness:
49-year-old male with past medical history significant for GERD, morbid obesity, sigmoid diverticulitis complicated by perforation and sepsis presents to the emergency room with elevated blood pressure and chest pressure-like sensation. He had
similar episode on 18 of May for which he was evaluated in our ER. Patient states that over the last 3 days his blood pressure has been consistently elevated more than 140/90, did not take any of the hydroxyzine prescribed during his visit on
of the April. Today at morning 10 AM he started having pounding headaches around his head and a throbbing sensation in his nose and eyes along with pressure-like chest ache of about 3/10 in intensity that is nonradiating in his chest. He
felt like he has episodic intermittent shortness of breath not associated with exertion. He is dizzy, by dizziness he means a sensation of passing out but not things and the room spinning around his head. He also states that he has flushing,
sweating, and a sensation of fright every time he has these episodes. His symptoms have been consistent since morning 10 AM.
He denies his chest pain radiating into his jaw or left arm. Denies radiation of chest pain with breathing.
Upon review of systems, he reports to have some nausea, attributes it to his previous diagnosis of GERD last took his pantoprazole about 5 days ago.
He denies having fevers, chills, orthopnea, PND, SOB on exertion, syncope or near syncopal episodes, palpitations, past diagnosis of hypertension or panic attacks. He denies any stress at work, and states that his episodes occurred at home as well.
If applicable-neuro sx onset
Onset of symptoms known: No
Time pt last seen normal is known: No
Past History
<Stephanie Villalta MD, Resident - Last Filed: 05/22/24 02:33>
Past History
ED Past Medical History: GERD and Other (Diverticulitis, )
ED Past Surgical History: Orthopedic (Left knee surgery) and Tonsilectomy
Social History
Tobacco: Non-smoker
Alcohol: Occasional
Drug: None
Personal:
Living: with family
Employment: Employed
Family History
Family History: Other (Mother had ID in her 60s, no history of stroke or hypertension in the family. No cancers.)
Review of Systems
<Stephanie Villalta MD, Resident - Last Filed: 05/22/24 02:33>
Review of Systems
Allergies reviewed?: Yes
All Other Systems: ROS reviewed and negative except as documented in HPI and ROS
Phy Exam
<Stephanie Villalta MD, Resident - Last Filed: 05/22/24 02:33>
General Physical Exam
General Presentation: well appearing and no apparent distress
General Skin: warm
General Habitus: obese
General Mental: alert
General Hydration: appears well hydrated
ENT Exam
ENT Exam: EOMI and TM's normal
Eye Exam
Eye Exam: PERRL and EOMI
Cardiovascular Exam
Cardiovascular Exam: regular rate/rhythm, no edema, no gallop, no JVD and no murmur
Heart Sounds: normal
THOMAS Score
Is patient's age greater than or equal to 65 years: No
Does patient have 3 or more CAD risk factors?: No
Does patient have known CAD: No
Has patient used ASA in past seven days?: Yes
Has patient had severe angina in past 24 hrs?: No
Are there ST changes greater 0.05mm?: No
Pulmonary Exam
Pulmonary Exam: lungs clear, no respiratory distress, no rales, no crackles and no rhonchi
Respirations: other (No accessory muscle use.)
Gastrointestinal Exam
Gastrointestinal Exam: normal bowel sounds, non tender, soft, no organomegaly and non distended
Neurological Exam
Neurological Exam: alert, CN II-XII intact, no motor deficits, normal reflexs and cerebellum intact
Musculoskeletal Exam
Musculoskeletal Exam: other (No costochondral tenderness, no neck stiffness.)
Skin Exam
Skin Exam: normal color
Psychiatric Exam
Psychiatric Exam: normal mood/affect
Scores
<Stephanie Villalta MD, Resident - Last Filed: 05/22/24 02:33>
Heart Score for Chest Pain Patients
STEMI patient?: No
History: Moderately Suspicious
ECG: Normal
Age: >45 - <65 years
Risk Factors: 1 or 2 Risk Factors
Troponin: </= Normal Limit
Heart Score for Chest Pain Patients: 3
Heart Score Risk: 2.5% MACE over next 6 weeks
<Angela Anglin MD - Last Filed: 05/22/24 02:33>
Heart Score for Chest Pain Patients
Heart Score for Chest Pain Patients: 3
Heart Score Risk: 2.5% MACE over next 6 weeks
Course
<Stephanie Villalta MD, Resident - Last Filed: 05/22/24 02:33>
Orders/Labs/Results
Orders:
Orders
05/21/24 23:10
EKG [Electrocardiogram (*1)] Urgent
Reason for Study: Chest Pain
EKG- Treatment ONCE
05/22/24 00:28
CMP [Comprehensive Metabolic Panel] Urgent
Complete Blood Count/With Diff Urgent
Troponin I Urgent
05/22/24 02:04
Lisinopril [Zestril] 10 mg PO NOW STA
Abnormal Lab Results
05/22/24
00:28
Immature Gran % 0.6 H %
(0-0.5)
BUN 21 H mg/dl
(9-20)
Glucose 109 H mg/dl
(70-99)
05/22/24 00:28
05/22/24 00:28
Vital Signs
Initial and Last Documented VS:
Initial Vital Signs
Temp Pulse Resp BP Pulse Ox
98.2 F 84 16 150/101 95
05/21/24 23:29 05/21/24 23:29 05/21/24 23:29 05/21/24 23:29 05/21/24 23:29
Last Documented Vital Signs
Temp Pulse Resp BP Pulse Ox
98.2 F 80 18 136/96 98
05/21/24 23:29 05/22/24 02:13 05/22/24 00:45 05/22/24 02:13 05/22/24 00:17
<Angela Anglin MD - Last Filed: 05/22/24 02:33>
Orders/Labs/Results
Orders:
Orders
05/21/24 23:10
EKG [Electrocardiogram (*1)] Urgent
Reason for Study: Chest Pain
EKG- Treatment ONCE
05/22/24 00:28
CMP [Comprehensive Metabolic Panel] Urgent
Complete Blood Count/With Diff Urgent
Troponin I Urgent
05/22/24 02:04
Lisinopril [Zestril] 10 mg PO NOW STA
Abnormal Lab Results
05/22/24
00:28
Immature Gran % 0.6 H %
(0-0.5)
BUN 21 H mg/dl
(9-20)
Glucose 109 H mg/dl
(70-99)
05/22/24 00:28
05/22/24 00:28
Vital Signs
Initial and Last Documented VS:
Initial Vital Signs
Temp Pulse Resp BP Pulse Ox
98.2 F 84 16 150/101 95
05/21/24 23:29 05/21/24 23:29 05/21/24 23:29 05/21/24 23:29 05/21/24 23:29
Last Documented Vital Signs
Temp Pulse Resp BP Pulse Ox
98.2 F 80 18 136/96 98
05/21/24 23:29 05/22/24 02:13 05/22/24 00:45 05/22/24 02:13 05/22/24 00:17
<Stephanie Villalta MD, Resident - Last Filed: 05/22/24 02:33>
MDM/Problems Addressed
Differential Diagnosis Includes:
Hypertension versus panic attacks versus CAD.
MDM/Problems Addressed:
Hypertension addressed, lisinopril 10 mg chart given.
<Stephanie Villalta MD, Resident - Last Filed: 05/22/24 02:33>
*EKG
Interpreted by ED Provider?: Yes
EKG Intrepretation Date: 05/21/24
EKG Intrepretation Time: 02:07
Interpretation: normal
Comparison EKG: no changes
Heart Rate: 79
Rate: normal
Rhythm: sinus
[place]: normal axis
Interval: normal QT interval and normal CA interval
QRS Pattern: normal QRS
Ischemia: no ischemia
*[employer] Conversion Manager Interpretation
Rate: normal
Interpretation: normal
Rhythm: sinus
*Critical Care Note
Total Time (30-74mins, 75-104mins- exclusive of procedures): Not Applicable
<Stephanie Villalta MD, Resident - Last Filed: 05/22/24 02:33>
Comment
Comment:
Patient does not meet the definitive criteria for hypertensive urgency or hypertensive emergency. Will counseled the patient regarding same. Will send him home with instructions for recording blood pressure, and lisinopril 10 mg once a day with
close follow-up with his primary care physician.
ED Attending Note
<Stephanie Villalta MD, Resident - Last Filed: 05/22/24 02:33>
-
Portions of this chart may have been created with voice recognition software.� Occasional wrong word or��sound alike� substitutions may have occurred due to the inherent limitations of voice recognition software.
<Angela Anglin MD - Last Filed: 05/22/24 02:33>
ED Attending Note
Patient seen and examined by attending physician: Yes
I performed the substantive portion of visit, reviewed & personally made and approve the management plan that is documented in note by myself or DIAZ.: Yes
I performed a history and physical exam of patient and discussed management with resident, I reviewed resident's note and agree with documented findings and plan of care.: Yes
ED Attending Note:
49-year-old male presents the emergency department with complaints of elevated blood pressure, which is associated with intermittent chest pressure. When he notes his blood pressure is elevated he also describes symptoms such as a 'throbbing'
headache, shortness of breath, lightheadedness, flushing, etc. Here in the emergency department, when I described what his most recent blood pressure is, states he feels much better and is asymptomatic at this time. Patient was seen recently in
the emergency department for similar symptoms workup was unremarkable and he was prescribed hydroxyzine which he has not taken as he does not feel that his would be relieved with anxiety. He is concerned about his continued blood pressure
elevations when he checks it at home. On exam, patient awake alert neuro intact, heart regular rate and rhythm, normal exam, no focal findings. Patient presents to the Emergency Department with ___elevated blood pressure, chest pain, etc.
Number and Complexity of Problems Addressed at the Encounter
� Chronic conditions affecting care:
� Acute Exacerbation and/or Progression of Chronic Illness:
� Differential Diagnosis includes: But not limited to hypertensive urgency, hypertensive emergency, ACS, etc.
Amount and/or Complexity of Data to be Reviewed and Analyzed
� I performed an independent evaluation of and my interpretation is:
EKG:
CT:
Xrays:
Laboratory Studies:
Other:
� Review of other/old records reveals: We reviewed blood pressure measurements over years since patient has presented to the emergency department and it demonstrates persistently elevated blood pressures that are becoming even
more elevated most recently.
� Clinical information was obtained by an independent historian: who is bedside
� Prescriptions/Medications Considered but not given:
� Further testing considered but not performed:
Risk of Complications and/or Morbidity or Mortality of Patient Management
� Social determinants of health affecting care:
� Discussion with other providers (PCP, Hospitalists, Consultants, etc):
� Escalation of care including admission/observation vs risk of discharge considered: Patient remains asymptomatic at this time. Strongly suspect patient is becoming concerned/anxious with noted blood pressure elevations which
are contributing to his symptoms. Recommendation to begin antihypertensive therapy with very close follow-up with his primary care physician.
Discharge Plan
Departure
Discharge Problem:
Hypertension, Morbid obesity with BMI of 45.0-49.9, adult, GERD (gastroesophageal reflux disease)
Instructions: High Blood Pressure (DC), BLOOD PRESSURE
Prescriptions:
New
lisinopril 10 mg tablet
10 mg PO DAILY Qty: 30 1RF
No Action
Ag1 Greens
1 dose PO DAILY
aspirin 81 mg Capsule
81 mg
levofloxacin 500 mg tablet
500 mg PO DAILY Qty: 9 0RF
metronidazole 500 mg tablet
500 mg PO TID Qty: 29 0RF
ondansetron 4 mg tablet,disintegrating
4 mg PO Q8H PRN (Reason: nausea and vomiting) Qty: 5 0RF
pantoprazole [Protonix] 40 mg tablet,delayed release (DR/EC)
40 mg PO DAILY Qty: 14 0RF
levofloxacin 500 mg tablet
500 mg PO DAILY 10 Days Qty: 10 0RF
metronidazole 500 mg tablet
500 mg PO TID Qty: 30 0RF
hydroxyzine HCl 25 mg tablet
25 mg PO BID PRN (Reason: anxiety ) Qty: 20 0RF
Referrals:
Jose Rainey DO [Family Provider] -
Interventions
Interventions:
*Risk Screen - Suicide Last Done: 05/21/24 23:23
*General Assessment Last Done: 05/22/24 00:18
*Neglect/Abuse Screening Last Done: 05/21/24 23:23
*ED COVID-19 Vaccine History Last Done: 05/21/24 23:29
ED- Cardiac Assessment Last Done: 05/22/24 00:14
ED- Neurological Assessment Last Done: 05/22/24 00:16
ED- Pulmonary Assessment Last Done: 05/22/24 00:17
Discharge Date and Time
Print Language: [id number]
[2024-05-22 00:13] VITALS: BP 150/104
[2024-05-22 00:15] VITALS: BMI 45.8
[2024-05-22 00:34] LABS: % Basophils 0.7 % (0-2); % Eosinophils 4.8 % (0-6); % Immature Granulocytes 0.6 % (0-0.5); % Monocytes 7.1 % (1.7-9.3); % Neutrophils 55.8 % (42.2-75.2); Absolute Basophils 0.1 10^3/uL (0-0.2); Absolute Eosinophils 0.3 10^3/uL (0-0.7); Absolute Lymphocytes 2.1 10^3/uL (1.2-3.4); Absolute Monocytes 0.5 10^3/uL (0.1-0.6); Absolute Neutrophils 3.9 10^3/uL (1.4-6.5); Hematocrit 42.3 % (39.0-52.0); Hemoglobin 14.9 g/dL (13.0-18.0); Mean Corp Hgb Conc. 35.2 g/dL (33.0-37.0); Mean Corpuscular Hgb 28.2 pg (27.0-31.0); Mean Platelet Volume 9.6 fL (7.4-10.4); Nucleated Red Blood Cells % 0 % (-); Platelet Count 172 10^3/uL (130-400); Red Blood Cell Count 5.29 10^6/uL (4.70-6.10); Red Cell Dist. Width 12.7 % (11.5-14.5); White Blood Cell Count 6.9 10^3/uL (4.8-10.8)
[2024-05-22 00:49] LABS: ALT (SGPT) 31 U/L (0-50); AST (SGOT) 27 U/L (17-59); Albumin 4.4 g/dl (3.5-5.0); Alkaline Phosphatase 73 U/L (38-126); Blood Urea Nitrogen 21 mg/dl (9-20); Calcium 9.5 mg/dl (8.4-10.2); Carbon Dioxide 29 mmol/L (22-30); Chloride 102 mmol/L (98-107); Estimated Creatinine Clearance > 125 ml/min; Glucose 109 mg/dl (70-99); Sodium 142 mmol/L (135-145); Total Bilirubin 0.7 mg/dl (0.2-1.3); Total Protein 7.2 g/dl (6.3-8.2); eGFR > 60.00
[2024-05-22 01:00] VITALS: BP 140/104
[2024-05-22 01:02] LABS: Troponin I < 0.012 ng/ml
[2024-05-22 02:00] VITALS: BP 136/96
[2024-05-22] MEDS: ZESTRIL 10 MG PO (02:13)
[2024-05-22 03:02] VITALS: BP 136/96
== END 2024-05-22 03:03 | disposition home or self-care (01) ==
LOC: EMR 23:09
PROVIDERS: Student in an Organized Health Care Education/Training Program; EMERGENCY PHYSICIAN Emergency Medicine; FAMILY PHYSICIAN Family Medicine
DX: R51.9 Headache, unspecified (principal); R06.02 Shortness of breath; R07.89 Other chest pain; R42 Dizziness and giddiness; R61 Generalized hyperhidrosis; R23.2 Flushing; I10 Essential (primary) hypertension; E66.01 Morbid (severe) obesity due to excess calories; K21.9 Gastro-esophageal reflux disease without esophagitis; Z68.42 Body mass index [BMI] 45.0-49.9, adult; K57.32 Diverticulitis of large intestine without perforation or abscess without bleeding; Z79.82 Long term (current) use of aspirin; Z88.0 Allergy status to penicillin; Z88.2 Allergy status to sulfonamides
CPT/HCPCS: 99283; 80053; 84484; 85025; 93005

== ENCOUNTER → 2024-06-11 07:19 | Outpatient (REF) | payer SELFPAY | LOC: RAD 07:19 | PROVIDERS: ATTENDING PHYSICIAN Nurse Practitioner | DX: R07.9 Chest pain, unspecified (principal); I10 Essential (primary) hypertension | CPT/HCPCS: 75571 ==

== ENCOUNTER → 2024-11-02 15:53 | Outpatient (REF) | payer OTHER, SELFPAY | LOC: RAD 15:53 | PROVIDERS: ATTENDING PHYSICIAN Nurse Practitioner | DX: J40 Bronchitis, not specified as acute or chronic (principal) | CPT/HCPCS: 71046 ==

== ENCOUNTER 2024-12-27 21:07 | Emergency (ER) | payer OTHER, SELFPAY ==
[2024-12-27 21:10] VITALS: BP 154/95
[2024-12-27 21:25] LABS: % Basophils 0.3 % (0-2); % Eosinophils 1.4 % (0-6); % Immature Granulocytes 0.3 % (0-0.5); % Monocytes 5.2 % (1.7-9.3); % Neutrophils 63.8 % (42.2-75.2); Absolute Eosinophils 0.1 10^3/uL (0-0.7); Absolute Lymphocytes 2.7 10^3/uL (1.2-3.4); Absolute Monocytes 0.5 10^3/uL (0.1-0.6); Hematocrit 43.8 % (39.0-52.0); Hemoglobin 14.8 g/dL (13.0-18.0); Mean Corp Hgb Conc. 33.8 g/dL (33.0-37.0); Mean Corpuscular Hgb 28.4 pg (27.0-31.0); Mean Corpuscular Volume 84.1 fL (80.0-94.0); Mean Platelet Volume 9.7 fL (7.4-10.4); Nucleated Red Blood Cells % 0 % (-); Platelet Count 175 10^3/uL (130-400); Red Blood Cell Count 5.21 10^6/uL (4.70-6.10); Red Cell Dist. Width 12.9 % (11.5-14.5); White Blood Cell Count 9.4 10^3/uL (4.8-10.8)
[2024-12-27 21:37] LABS: Lactic Acid 0.7 mmol/L (0.7-2.0)
[2024-12-27 21:48] LABS: ALT (SGPT) 26 U/L (0-50); AST (SGOT) 26 U/L (17-59); Albumin 4.5 g/dl (3.5-5.0); Alkaline Phosphatase 69 U/L (38-126); Blood Urea Nitrogen 17 mg/dl (9-20); Calcium 9.2 mg/dl (8.4-10.2); Carbon Dioxide 29 mmol/L (22-30); Chloride 104 mmol/L (98-107); Glucose 110 mg/dl (70-99); Lipase 151 U/L (23-300); Potassium 4.1 mmol/L (3.5-5.1); Sodium 141 mmol/L (135-145); Total Protein 7.3 g/dl (6.3-8.2); eGFR > 60.00
[2024-12-28 00:06] VITALS: BMI 41.6
--- NOTE | 2024-12-28 00:22 | ED.GENMED ---
History of Present Illness
General
Chief Complaint: Abdominal Symptoms
Source: patient, records, previous radiology exam and previous hospital records
Exam Limitations: none
Time Seen by Provider: 12/28/24 00:05
Nursing documentation reviewed up to this point in time: agreed with
History of Present Illness
History of Present Illness:
49-year-old male diverticulosis and diabetes followed by Dr. Reynolds has had a colonoscopy, few episodes of diverticulitis 1 with a perforation treated conservatively, hypertensive, nondrinker non-smoker no prior abdominal surgery presents with about
a week of abdominal symptoms fever and pain about a week ago lasted a couple days and improved returned today right greater than left similar to his prior episodes of diverticulitis had a prescription at home for Levaquin Flagyl which he took today
Past History
Past History
ED Past Medical History: GERD and Other (Diverticulitis, )
ED Past Surgical History: Orthopedic (Left knee surgery) and Tonsilectomy
Social History
Tobacco: Non-smoker
Alcohol: None
Drug: None
Personal:
Living: with family
Employment: Employed
Family History
Family History: Other (Mother had OH in her 60s, no history of stroke or hypertension in the family. No cancers.)
Review of Systems
Review of Systems
All Other Systems: Not applicable
Constitutional: Reports fever (A week ago) and fatigue
Respiratory: Reports no symptoms
Cardiac: Reports no symptoms
ABD/GI: Reports abdominal pain and nausea; Denies diarrhea or constipated
: Reports no symptoms
Musculoskeletal: Reports no symptoms
Phy Exam
Physical Exam
Physical Exam:
Physical Exam
General: no apparent distress, not acutely ill
Neck: No jaundice
Heart: s1/s2 regular rate and rhythm, no murmur. equal radial pulses.
Lungs: no acute respiratory distress. clear bilaterally
Abdomen: Tender in the right lower
Neuro: alert and oriented. no focal neurological deficits
Skin: no rash
Psychiatric: well kept. interactive and cooperative
Extremities: no edema.
Course
Orders/Labs/Results
Orders:
Orders
12/27/24 21:18
Complete Blood Count/With Diff Urgent
Comprehensive Metabolic Panel Urgent
Lactic Acid Urgent
Lipase Urgent
12/28/24
CT Abd/pelvis W Iv Cont Urgent
Reason For Exam: pian tics
12/28/24 00:17
0.9% Sodium Chloride 1000 ml [Nss] 1,000 ml IV BOLUS
Acetaminophen [Tylenol] 1,000 mg PO NOW STA
Abnormal Lab Results
12/27/24
21:18
Glucose 110 H mg/dl
(70-99)
12/27/24 21:18
12/27/24 21:18
Vital Signs
Initial and Last Documented VS:
Initial Vital Signs
Temp Pulse Resp BP Pulse Ox
98.2 F 95 20 154/95 98
12/27/24 21:10 12/27/24 21:10 12/27/24 21:10 12/27/24 21:10 12/27/24 21:10
Last Documented Vital Signs
Temp Pulse Resp BP Pulse Ox
98.2 F 79 20 137/85 96
12/28/24 01:24 12/28/24 00:08 12/27/24 21:10 12/28/24 01:23 12/28/24 01:23
MDM/Problems Addressed
Differential Diagnosis Includes:
Diverticulitis appendicitis colitis nonspecific abdominal
MDM/Problems Addressed:
Abdominal pain
Chronic conditions affecting care:
Diverticulosis
Acute Exacerbation and/or Progression of Chronic Illness:
Diverticulosis
*Radiology
Radiology exam reviewed: radiology read reviewed
*Pulse Oximetry
Patient hypoxic: no
*Critical Care Note
Total Time (30-74mins, 75-104mins- exclusive of procedures): Not Applicable
Data Reviewed
Review of Other/Old Records Reveals: Labs and Radiology Studies
Source: patient
Update Note
Update Note:
2:00 CT report noted patient comfortable only had 1 dose of antibiotic at home he is a full prescription to take think he is a good candidate for outpatient treatment patient resting comfortably no acute distress
ED Attending Note
-
Portions of this chart may have been created with voice recognition software.� Occasional wrong word or��sound alike� substitutions may have occurred due to the inherent limitations of voice recognition software.
Discharge Plan
Departure
Patient Disposition: Home (Routine Discharge)
Date of Disposition: 12/28/24
Time of Disposition: 02:01
Patient with high blood pressure during this ER visit?: No
Condition: Good
Discharge Problem:
Diverticulitis
Instructions: Diverticulitis - Discharge instructions
Prescriptions:
No Action
Ag1 Greens
1 dose PO DAILY
aspirin 81 mg Capsule
81 mg
levofloxacin 500 mg tablet
500 mg PO DAILY Qty: 9 0RF
metronidazole 500 mg tablet
500 mg PO TID Qty: 29 0RF
ondansetron 4 mg tablet,disintegrating
4 mg PO Q8H PRN (Reason: nausea and vomiting) Qty: 5 0RF
pantoprazole [Protonix] 40 mg tablet,delayed release (DR/EC)
40 mg PO DAILY Qty: 14 0RF
levofloxacin 500 mg tablet
500 mg PO DAILY 10 Days Qty: 10 0RF
metronidazole 500 mg tablet
500 mg PO TID Qty: 30 0RF
hydroxyzine HCl 25 mg tablet
25 mg PO BID PRN (Reason: anxiety ) Qty: 20 0RF
lisinopril 10 mg tablet
10 mg PO DAILY Qty: 30 1RF
Referrals:
Mary Zimmer CRNP [Family Provider, Internal Medicine] - Follow up in 2-3 days
Activity Restrictions/Additional Instructions:
Continue antibiotics as prescribed follow-up with your family doctor and/or Dr. Reynolds
Return to the ER if worsening symptoms
Interventions
Interventions:
*Risk Screen - Suicide Last Done: 12/28/24 00:09
*General Assessment Last Done: 12/27/24 21:10
*Neglect/Abuse Screening Last Done: 12/28/24 00:09
*ED- Fall Risk Assessment Last Done: 12/28/24 00:09
*ED COVID-19 Vaccine History Last Done: 12/28/24 00:09
GK-Jqvqxy-Cggerozmhm Assessment Last Done: 12/28/24 00:07
Discharge Date and Time
Print Language: JAPANESE
[2024-12-28] MEDS: NSS 1000 IV (01:00)
[2024-12-28] MEDS: TYLENOL 1000 MG PO (01:00)
[2024-12-28 01:23] VITALS: BP 137/85
== END 2024-12-28 02:40 | disposition home or self-care (01) ==
LOC: EMR 21:07
PROVIDERS: Emergency Medicine; EMERGENCY PHYSICIAN Emergency Medicine; FAMILY PHYSICIAN Nurse Practitioner
DX: K57.92 Diverticulitis of intestine, part unspecified, without perforation or abscess without bleeding (principal); K21.9 Gastro-esophageal reflux disease without esophagitis; E11.9 Type 2 diabetes mellitus without complications; I10 Essential (primary) hypertension; Z82.49 Family history of ischemic heart disease and other diseases of the circulatory system
CPT/HCPCS: 99284; 96360; 74177; 80053; 83605; 83690; 85025; Q9967

== ENCOUNTER 2025-07-22 21:21 | Emergency (ER) | payer OTHER, SELFPAY ==
[2025-07-22 21:27] VITALS: BP 158/112
[2025-07-22 21:42] VITALS: BP 140/91
[2025-07-22 21:42] LABS: Hematocrit 42.7 % (39.0-52.0); Hemoglobin 15.0 g/dL (13.0-18.0); Mean Corp Hgb Conc. 35.1 g/dL (33.0-37.0); Mean Corpuscular Volume 81.5 fL (80.0-94.0); Nucleated Red Blood Cells % 0 % (-); Platelet Count 178 10^3/uL (130-400); Red Cell Dist. Width 12.6 % (11.5-14.5)
[2025-07-22 22:00] VITALS: BP 140/98
[2025-07-22 22:04] LABS: ALT (SGPT) 23 U/L (0-50); AST (SGOT) 22 U/L (17-59); Albumin 4.5 g/dl (3.5-5.0); Alkaline Phosphatase 89 U/L (38-126); Blood Urea Nitrogen 17 mg/dl (9-20); Calcium 9.7 mg/dl (8.4-10.2); Carbon Dioxide 29 mmol/L (22-30); Chloride 102 mmol/L (98-107); Glucose 128 mg/dl (70-99); Potassium 4.0 mmol/L (3.5-5.1); Sodium 137 mmol/L (135-145); Total Protein 7.6 g/dl (6.3-8.2); eGFR > 60.00
--- NOTE | 2025-07-22 22:05 | ED.GENMED ---
History of Present Illness
General
Chief Complaint: Chest Pain
Source: patient
Time Seen by Provider: 07/22/25 21:52
History of Present Illness
History of Present Illness:
50-year-old male presents to the emergency room for evaluation of chest discomfort. Patient states that he began having chest discomfort early this morning around 1 AM or so. He got up and walked around to see if that would help. The discomfort
reminded him of what he experiences with GERD. Unfortunately he did not have pantoprazole with him. The pain continued throughout the day though at a much lesser level. Patient states he basically rested throughout the day. This evening the pain
seemed to worsen again. He noticed some discomfort in his neck and his left arm perhaps. Patient states that he started to become anxious about the symptoms prompting him to come to the emergency room for evaluation. He denies associated
shortness of breath, nausea or diaphoresis. The pain does not change with movement or exertion. He the pain does not worsen with deep breaths. Denies any recent long car rides or plane rides. He does work in [place] so drives back and forth
from there but those trips are typically less than 3 to 4 hours.
Past History
Past History
ED Past Medical History: GERD, HTN and Other (Diverticulitis, )
ED Past Surgical History: Orthopedic (Left knee surgery) and Tonsilectomy
Social History
Tobacco: Non-smoker
Alcohol: None
Drug: None
Personal:
Living: with family
Employment: Employed
Family History
Family History: Other (Mother had OK in her 60s, no history of stroke or hypertension in the family. No cancers.)
Phy Exam
Physical Exam
Physical Exam:
General: Awake, Alert, Oriented X3. No acute distress.
Vitals: unremarkable
Head: Atraumatic
Eyes: Pupils equal, EOMI
Throat: Airway intact, no exudates
Neck: Trachea midline
Lungs: Clear and equal b/l
Heart: Regular rate, no murmurs
Abd: Soft, Nontender, No pulsatile mass
Neuro: Nonfocal
Skin: Warm, dry, no rash
Extremities: pulses equal b/l, no edema
Scores
Heart Score for Chest Pain Patients
STEMI patient?: No
History: Slightly or Non-Suspicious
ECG: Normal
Age: >45 - <65 years
Risk Factors: 1 or 2 Risk Factors
Troponin: </= Normal Limit
Heart Score for Chest Pain Patients: 2
Heart Score Risk: 2.5% MACE over next 6 weeks
Course
Orders/Labs/Results
Orders:
Orders
07/22/25 21:22
Electrocardiogram (*1) Urgent
Reason for Study: Chest Pain
Cardiac Monitoring- Treatment ONCE
EKG- Treatment ONCE
O2 Therapy [RESP] Urgent
Titrate/Wean O2 to maintain O2 sat greater than (%): 90
Special Instructions: Maintain sats >/=90%
Pulse Ox/spot Check [RESP] Urgent
Quantity: 1
Special Instructions: ON ROOM AIR
07/22/25 21:36
Complete Blood Count/With Diff Urgent
Comprehensive Metabolic Panel Urgent
Troponin I Urgent
07/22/25 22:04
Pantoprazole [Protonix] 40 mg PO NOW STA
CR Chest - 2 Views Urgent
Comment:
Reason For Exam: chest pain
07/22/25 23:35
EKG [Electrocardiogram (*1)] Routine
Reason for Study: Other
Other Reason for Exam: Repeat troponin
EKG- Treatment ONCE
07/22/25 23:41
Troponin I Urgent
Abnormal Lab Results
07/22/25
21:36
Immature Gran % 0.6 H %
(0-0.5)
Eosinophils % 6.3 H %
(0-6)
Glucose 128 H mg/dl
(70-99)
07/22/25 21:36
07/22/25 21:36
Vital Signs
Initial and Last Documented VS:
Initial Vital Signs
Temp Pulse Resp BP Pulse Ox
97.8 F 82 18 158/112 96
07/22/25 21:27 07/22/25 21:27 07/22/25 21:27 07/22/25 21:27 07/22/25 21:27
Last Documented Vital Signs
Temp Pulse Resp BP Pulse Ox
97.8 F 73 14 138/96 97
07/22/25 21:27 07/22/25 23:45 07/22/25 23:45 07/22/25 23:00 07/22/25 23:45
MDM/Problems Addressed
Differential Diagnosis Includes:
ACS, chest wall pain, GERD
MDM/Problems Addressed:
Patient presents with chest pain. His EKG here shows no ischemic changes x 2. Troponins normal x 2. Patient feels better after taking Protonix. Suspect GERD. Certainly with 2 negative troponins acute coronary syndrome is highly unlikely.
Recommend outpatient follow-up. Placed on the chest pain hotline. 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 He is not sure who his stockroom supervisor is but it someone here at [facility].
*Radiology
Radiology exam reviewed: preliminary read by ED provider (No acute disease on my review of the patient's chest x-ray)
*Pulse Oximetry
SaO2: 97
Oxygen Mode of Delivery: Room air
Patient hypoxic: no
*EKG
Interpreted by ED Provider?: Yes
Heart Rate: 73
Rate: normal
Rhythm: sinus
[place]: normal axis
Interval: normal interval
QRS Pattern: normal QRS
Ischemia: no ischemia
*Bone Puller Interpretation
Rate: normal
Interpretation: normal
Rhythm: sinus
*Critical Care Note
Total Time (30-74mins, 75-104mins- exclusive of procedures): Not Applicable
ED Attending Note
-
Portions of this chart may have been created with voice recognition software.� Occasional wrong word or��sound alike� substitutions may have occurred due to the inherent limitations of voice recognition software.
Discharge Plan
Departure
Patient Disposition: Home (Routine Discharge)
Date of Disposition: 07/23/25
Time of Disposition: 00:14
Patient with high blood pressure during this ER visit?: Yes
Condition: Good
Discharge Problem:
Chest pain
Instructions: Chest Pain CBC Follow Up, BLOOD PRESSURE
Prescriptions:
New
pantoprazole 40 mg tablet,delayed release (DR/EC)
40 mg PO DAILY Qty: 30 0RF
No Action
Ag1 Greens
1 dose PO DAILY
aspirin 81 mg Capsule
81 mg
levofloxacin 500 mg tablet
500 mg PO DAILY Qty: 9 0RF
metronidazole 500 mg tablet
500 mg PO TID Qty: 29 0RF
ondansetron 4 mg tablet,disintegrating
4 mg PO Q8H PRN (Reason: nausea and vomiting) Qty: 5 0RF
pantoprazole [Protonix] 40 mg tablet,delayed release (DR/EC)
40 mg PO DAILY Qty: 14 0RF
hydroxyzine HCl 25 mg tablet
25 mg PO BID PRN (Reason: anxiety ) Qty: 20 0RF
lisinopril 10 mg tablet
10 mg PO DAILY Qty: 30 1RF
Referrals:
Mary Zimmer CRNP [Family Provider, Internal Medicine]
Interventions
Interventions:
*General Assessment Last Done: 07/22/25 21:27
*Neglect/Abuse Screening Last Done: 07/22/25 21:27
*ED COVID-19 Vaccine History Last Done: 07/22/25 22:34
*ED Influenza Vaccine History Last Done: 07/22/25 22:34
[facility] Risk Assessment Tool Last Done: 07/22/25 23:56
*Risk Screen - Suicide (C-SSRS) Last Done: 07/22/25 21:27
*Nursing Disposition Last Done: 07/23/25 00:37
ED- Cardiac Assessment Last Done: 07/22/25 22:34
Discharge Date and Time
Discharge Date/Time: 07/23/25 00:38
Print Language: GREEK
[2025-07-22 22:06] LABS: Troponin I < 0.012 ng/ml
[2025-07-22 22:36] VITALS: BP 130/87
[2025-07-22 22:42] VITALS: BMI 44.4
[2025-07-22] MEDS: PROTONIX 40 MG PO (22:47)
[2025-07-22 23:00] VITALS: BP 138/96
[2025-07-23 00:12] LABS: Troponin I < 0.012 ng/ml
== END 2025-07-23 00:38 | disposition home or self-care (01) ==
LOC: EMR 21:21
PROVIDERS: EMERGENCY PHYSICIAN Emergency Medicine; FAMILY PHYSICIAN Nurse Practitioner
DX: R07.9 Chest pain, unspecified (principal); I10 Essential (primary) hypertension; K21.9 Gastro-esophageal reflux disease without esophagitis; Z82.49 Family history of ischemic heart disease and other diseases of the circulatory system
CPT/HCPCS: 99284; 71046; 80053; 84484; 85025; 93005